=== PATIENT | female | born 1955 | race Caucasian/White ===

== ENCOUNTER 2016-10-24 13:20 | Observation (INO) | payer OTHER ==
[~2016-10-24] VITALS: Ht 157.5 cm; Wt 78.9 kg
[2016-10-24 13:25] VITALS: BP 107/56; PULSE 74; RESP 16; O2SAT 99
--- NOTE | 2016-10-24 13:47 | ED.REPORT ---
HPI-Chest Pain 40 and Over Date of Service Oct 24, 2016 ED Provider: Jaime Hutson DO Pt is a 61 year old female with a history of CHF, GERD, pancreatitis, and diastolic dysfunction who presents to the ED via EMS complaining of intermittent left-sided non-radiating and sharp chest pain onset 2 days ago. She c/o stress. She denies SOB and extremity swelling. Pt reports that each episode of chest pain lasts between 5-10 minutes, and that she is currently experiencing mild chest pain. Her chest pain is exacerbated with exertion. Pt denies a history of RI, smoking, and stroke. Nursing Notes Stated Complaint: CHEST PAIN Chief Complaint: Chest Pain Nursing Notes Reviewed: Yes Allergies: Coded Allergies: hydrocodone (Verified Allergy, Intermediate, itching, 10/24/16) pentazocine (Verified Allergy, Unknown, 10/24/16) prochlorperazine (Verified Allergy, Unknown, 10/24/16) General Time Seen by MD: 13:45 Chief Complaint Chest pain Hx Obtained From: Patient Arrived By: Walk-in Sudden in Onset?: No Onset Occurred: 2 days ago Symptom Duration: Intermittent Location: : Chest left Quality: Painful Radiation: : Does not radiate Migration/Movement: Reports: None Severity: Current: Moderate Severity: Maximum: Moderate Recent Healthcare: No recent doctor visit, No recent hospitalization Similar Sx Previous: No Risk Factors HEART Score HEART for MACE Score: 4-7 (mod risk 12%-16.6%) (4) Past Medical History Past Medical History Pancreatitis Diastolic dysfunction Denies RI Reports: Congestive heart failure, GERD, Denies: Stroke Past Surgical History Reports: Hysterectomy Smoking History Never Smoker Social History Denies Ambulatory Status Independent Review of Systems Respiratory: Denies: Shortness of breath Cardiovascular: Reports: Chest pain Musculoskeletal: Denies: Extremity pain, Extremity swelling Psychiatric: Reports: Stress Complete sys rev & neg: except as marked. Physical Exam Initial Vital Signs Vital Signs (First) Date Time Temp Pulse Resp B/P Pulse Ox O2 Delivery O2 Flow Rate FiO2 10/24/16 13:25 36.7 74 16 107/56 99 Room Air Initial VS: Reviewed Head / Eyes: Atraumatic, Normocephalic Neck: Supple, Full range of motion Extremities: Vascular intact, Neuro intact Skin: Warm, Dry, No cyanosis Neurologic: Alert, Oriented, Nonfocal Psychiatric: Mood/affect normal, Behavior normal General/Constitutional: Awake, Alert Respiratory / Chest: Atraumatic, Breath sounds NL, Breath sounds = bilat Cardiovascular: Heart rate NL, Regular rhythm, Heart sounds NL No lower extremity edema. Abdomen: Atraumatic, Soft, Non-tender Neck: Atraumatic, Full range of motion, No JVD Interpretation & Diagnostics Lab Results Interpretation Result Diagram: 10/24/16 1344 10/24/16 1344 Test 10/24/16 13:44 White Blood Count 6.3th/mm3 (3.8-10.1) Red Blood Count 4.49mil/mm3 (3.90-5.20) Hemoglobin 13.4g/dL (12.0-15.6) Hematocrit 39.3% (35.0-46.0) Mean Corpuscular Volume 87.5fL (81-100) Mean Corpuscular Hemoglobin 29.8pg (27.0-35.0) Mean Corpuscular Hemoglobin Concent 34.1% (32.0-37.0) Red Cell Distribution Width 12.6% (12.3-15.4) Platelet Count 203bil/L (150-400) Neutrophils (%) (Auto) 53.1% (40-74) Lymphocytes (%) (Auto) 36.1% (14-46) Monocytes (%) (Auto) 8.1% (4-12) Eosinophils (%) (Auto) 2.2% (0-5) Basophils (%) (Auto) 0.3% (0-3) Sodium Level 139mEq/L (134-144) Potassium Level 4.2mEq/L (3.5-5.2) Chloride Level 102mEq/L (97-108) Carbon Dioxide Level 22mmol/L (18-29) Blood Urea Nitrogen 17mg/dL (8-27) Creatinine 0.77mg/dL (0.57-1.00) Estimat Glomerular Filtration Rate 110mL/min (>59) Glucose Level 107mg/dL (60-99) Calcium Level 9.7mg/dL (8.5-10.1) Magnesium Level 1.9mg/dL (1.6-2.6) Total Bilirubin 0.3mg/dL (0.0-1.2) Aspartate Amino Transf (AST/SGOT) 17U/L (0-50) Alanine Aminotransferase (ALT/SGPT) 16U/L (0-32) Alkaline Phosphatase 71U/L (25-165) Total Protein 7.3g/dL (6.4-8.4) Albumin 4.4g/dL (3.4-5.0) ECG Interpretation ECG Interpretation: Sinus rhythm with a rate of 65 Time: 14:01 Interpreted by: ED physician X-Ray Chest Interpretation Chest Xray Interpretation: IMPRESSION: Normal. Source of pain is not seen. Dictated by: Varghese Lopez M.D. on 10/24/2016 at 14:06 View: Portable, 1 view Interpretation / Wet Read by: Interpret - Radiologist Re-Eval/Medical Decision Source of Hx: Old records Time of Eval: 14:32 Patient Status: Condition resolved Re-Evaluation/Progress Note: Pt rechecked. She is currently chest pain free. Informed pt of plan for admission. Pt understands and agrees with plan for admission. All questions addressed. Consultation : Referral / Consult Name: William Roa Consulted With: Hospitalist Call Returned at: 15:20 Imaging Services Director: Will see patient, Agrees with eval, Agrees with plan, Accepts admit Counseled Regarding: Diagnosis, Lab results, Need for admission Discharge & Departure Primary Impression: Unstable angina Disposition: ADMITTED TO HOSPITAL Discharge Condition All VS Reviewed: Yes Condition: Stable Referrals: [facility] Residency Clinic Scribe Attestation Portions of this note were transcribed by Susan Madrid. I, Dr. Hutson personally performed the history, physical exam and medical decision-making; I reviewed and confirmed the accuracy of the information in the transcribed note. Signed by: Amparo Melgoza, 10/24/16. copies to: [facility] Res[facility] Jaime Hutson DO Oct 24, 2016 13:47 Susan Hines Oct 24, 2016 14:07 Jaime Hutson DO Oct 24, 2016 13:47 Susan Hines Oct 24, 2016 14:07
[2016-10-24 13:51] LABS: BASOPHILS % (AUTO) 0.3 % (0-3); EOSINOPHILS % (AUTO) 2.2 % (0-5); MONOCYTES % (AUTO) 8.1 % (4-12); Mean Corpuscular Hemoglobin 29.8 pg (27.0-35.0); Mean Corpuscular Volume 87.5 fL (81-100); NEUTROPHILS % (AUTO) 53.1 % (40-74); Platelet Count 203 bil/L (150-400)
--- NOTE | 2016-10-24 14:07 | DRSVH ---
PROCEDURE: X-RAY CHEST ONE VIEW, PORTABLE ([id number]) INDICATIONS: chest pain TECHNIQUE: One view of the chest was acquired. COMPARISON: None. FINDINGS: Surgical changes and devices: None. Lungs and pleura: No pleural effusions or pneumothorax. Lungs are clear. Mediastinum: Mediastinal contours appear normal. Heart size is normal. Bones and chest wall: No suspicious bony lesions. Overlying soft tissues appear unremarkable. IMPRESSION: Normal. Source of pain is not seen. Dictated by: Varghese Lopez M.D. on 10/24/2016 at 14:06 Approved by: Varghese Lopez M.D. on 10/24/2016 at 14:06
[2016-10-24 14:21] LABS: TROPONIN T < 0.010 ug/L (0.0-0.011)
[2016-10-24 14:22] LABS: Magnesium 1.9 mg/dL (1.6-2.6)
[2016-10-24] MEDS ORDERED: Ondansetron 2 mg/mL 2 mL Inj IVPUSH PRN (15:20)
[2016-10-24] MEDS ORDERED: Alum-Mag Hydrox-Simeth 30 mL Suspension PO PRN ×2 (15:20→15:55)
[2016-10-24] MEDS ORDERED: Polyethylene Glycol (PEG) 17 Gm Powder PO PRN (15:55)
[2016-10-24] MEDS ORDERED: Pantoprazole 20 mg ER24 Tablet PO SCH (16:00)
--- NOTE | 2016-10-24 16:00 | NUR ---
Admit Patient admitted to [facility] via wheelchair accompanied by ED staff, A/O x3. Ambulating independently in the room, steady gait. Pain level of 3/10 with activity. Denies any SOB. IV saline lock, patent and intact, right forearm. Oriented to room and unit. Will continue to monitor.
[2016-10-24 16:30] VITALS: BP 119/71; PULSE 71; RESP 18; O2SAT 99
[2016-10-24] MEDS ORDERED: ALBU18HF INHALATION (16:52)
[2016-10-24] MEDS ORDERED: PREC VAGINAL (16:52)
[2016-10-24] MEDS ORDERED: CARV25TA2 PO (16:52)
[2016-10-24] MEDS ORDERED: LISI-571 PO (16:52)
[2016-10-24] MEDS ORDERED: OMEP20CA11 PO (16:52)
[2016-10-24] MEDS ORDERED: ASPI-973 PO (16:52)
[2016-10-24] MEDS ORDERED: ADV250INH IH (16:52)
[2016-10-24] MEDS ORDERED: ONDA8TAB10 PO (16:52)
[2016-10-24] MEDS ORDERED: KEN1C TOPICAL (16:53)
--- NOTE | 2016-10-24 16:56 | PCM.HPMED ---
Subjective Date of Service Oct 24, 2016 Primary Provider: Admitting Physician: William Roa Primary Care Physician: Moreno Attending Physician: William Roa Chief Complaint: Chest pain History of Present Illness: 61 year old female with self reported history of diastolic heart failure, GERD, chronic pancreatitis pancreatitis, and Crohn's disease presents with report of intermittent left-sided, non-radiating, and sharp chest pain with exertion that began about 2 days ago. She first started noticing some chest discomfort few days ago as she was going the stairs in her apartment. 2 days ago as she was walking to the [facility] she noticed significant sharp left sided chest pain (about 6 out of 10 in intensity) that was associated with some nausea but no other associated symptoms. The pain lasted about 5 minutes and was relieved with rest. She had recurrence of this pain throughout the day every time she would ambulate or exert herself. Yesterday she rested at home all day and did not have any chest discomfort. Today as she was coming back from [facility] she had another episode. She went to the local fire station and was subsequently brought to the ED via EMS. In the ED her chest pain resolved after one SL NTG. She denies any associated shortness of breath, diaphoresis or vomiting with these episodes of chest pain but did have some associated lightheadedness and nausea. She denies any similar episodes prior to recent days. She last had a stress test and cardiac cath about 5-6 years when she was supposedly diagnosed with diastolic heart failure and she notes that at that time no significant coronary artery disease was identified. She reports chronic bilateral lower extremity edema that has not been any worse than usual. Review of Systems: Constitutional: Negative, except as otherwise mentioned in the history above. Ophthalmologic: Negative, except as otherwise mentioned in the history above. Cardiovascular: Negative, except as otherwise mentioned in the history above. Respiratory: Negative, except as otherwise mentioned in the history above. Gastrointestinal: Negative, except as otherwise mentioned in the history above. Genitourinary: Negative, except as otherwise mentioned in the history above. Musculoskeletal: Negative, except as otherwise mentioned in the history above. Neurological: Negative, except as otherwise mentioned in the history above. Psychiatric: Negative, except as otherwise mentioned in the history above. Hematologic/Lymphatic: Negative, except as otherwise mentioned in the history above. Allergic/Immunologic: Negative, except as otherwise mentioned in the history above. Allergies Coded Allergies: hydrocodone (Verified Allergy, Intermediate, itching, 10/24/16) pentazocine (Verified Allergy, Unknown, 10/24/16) prochlorperazine (Verified Allergy, Unknown, 10/24/16) Home Medications Albuterol Sulfate 200 Puff/18 Gm Inhaler 2 Puffs INHALATION QID PRN Carvedilol 25 Mg Tablet 25 Mg PO BID Lisinopril 5 Mg Tablet 2.5 Mg PO DAILY Aspirin 81 Mg Tablet 81 Mg PO DAILY Fluticasone/Salmeterol (Advair 250-50 Diskus) 1 Puff IH BID Omeprazole 20 Mg Capsule.Dr 20 Mg PO BID Ondansetron ODT 8 Mg Tab.Rapdis 8 Mg PO TID PRN Estrogens Conjugated 1 Gm Vagcream (Premarin) 1 Gm VAGINAL WEEKLY Triamcinolone Acet 1 Applic/0.25 Gm Cr 1 Applic TOPICAL DAILY PRN PMH Chronic Pancreatitis Diastolic dysfunction GERD, Crohn's disease Asthma Surgical History Hysterectomy Family History Father with lymphoma, mother with uterine and skin cancer. An aunt may have had a heart disease Social History Hx Alcohol Use: No Hx Substance Use: No Hx Tobacco Use: No Smoking Status: Never Smoker Living Arrangement: Alone Exam Vital Signs Vital Sign - Last Date Time Temp Pulse Resp B/P Pulse Ox O2 Delivery O2 Flow Rate FiO2 10/24/16 13:25 36.7 74 16 107/56 99 Room Air General: Alert, Oriented X3, Cooperative, No Acute Distress Head: Normal Eyes: PERRLA, EOMI, Scleral Anicteric Nose: Mucous Membr Moist/[place]ast[place] Mouth: Mucous Membr Moist/[place] Neck: Supple Chest & Lungs: Chest Wall Normal, Clear to auscultation & percussion Cardiovascular: Regular Rate/Rhythm Pulses: NL carotid, radial, femoral, DP, PT Abdomen: Non-tender, Non-distended, Normoactive bowel tones, Soft Extremities: No cyanosis/clubbing/edma bilat Neurological: Grossly Neurologically Intact, Cranial Nerves 2-12 Intact, Normal Speech Additional Information: Psych: Calm, appropriate Lab and Diagnostics Result Diagram: 10/24/16 1344 10/24/16 1344 X-Rays, CTs and MRIs Date of Service: 10/24/16 1333 PROCEDURE: X-RAY CHEST ONE VIEW, PORTABLE ([id number]) IMPRESSION: Normal. Source of pain is not seen. Dictated by: Varghese Lopez M.D. on 10/24/2016 at 14:06 Approved by: Varghese Lopze M.D. on 10/24/2016 at 14:06 12-lead ECG SR at rate of about [address] elevation/depression. Assessment & Plan 61 year old female with self reported history of diastolic heart failure, GERD, chronic pancreatitis pancreatitis, and Crohn's disease presents with report of intermittent left-sided, non-radiating, and sharp chest pain with exertion # Acute chest pain, present on admission. - Rule out myocardial infarction by cycling Trop - Stress test in AM - Echo - Continue with home BP meds and ASA - Start Lipitor - Fasting lipid panel # Chronic Pancreatitis. Stable - Followup # Diastolic dysfunction - Continue with home dose Lisinopril - Followup echo # GERD - Continue with home PPI # Crohn's disease. Stable - Not on any home meds # Chronic asthma. Stable - Continue with home dose inhalers Expected length of hospital stay is less than 2 midnights and likely 1-2 days GI Prophylaxis: Proton Pump Inhibitor VTE Prophylaxis: Sub-Q Heparin (Unfractionated) Resuscitation Status: CPR: Attempt Resuscitation (discussed and verified with patient) Time spent 60 min William Roa Oct 24, 2016 16:56
[2016-10-24 16:58] VITALS: PULSE 65
--- NOTE | 2016-10-24 17:07 | DRSVH ---
[facility] [address] [place] [address] Echocardiogram Report Name: DUNCAN MACHADO RStudy Date : 10/24/2016 Height: 62 in Hospital Exam Location: [facility] Weight: 170 lb Gender: Female BSA: 1.8 m2 : 1955 Age: 61 yrs Reason For Study: CHEST PAIN Ordering Physician: HOSPITALIST [facility] Performed By: Pauline Welch Referring Physician: [facility] Interpretation Summary The left ventricle is normal in size. The left ventricular ejection fraction is normal. The ejection fraction is estimated to be 55-60%. There is a small area of hypokinesis along the apical anterior and apical lateral wall. The right ventricle is normal in size, thickness and function. The right ventricular systolic pressure is estimated at least 23 mmHg assuming a right atrial pressure of 3 mm Hg. The left atrial size is normal. Right atrial size is normal. There is mild mitral regurgitation. There is no other significant valvular heart disease. The aortic root is normal size. Procedure: A two-dimensional transthoracic echocardiogram with color flow and Doppler was performed. The study quality was technically good. There is no prior echocardiogram noted for this patient. The patient was in normal sinus rhythm during the exam. Left Ventricle: The left ventricle is normal in size. There is borderline concentric left ventricular hypertrophy. The left ventricular ejection fraction is normal. The ejection fraction is estimated to be 55-60%. There is small area of hypokinesis along the apical anterior and apical lateral wall. Assessment of diastolic parameters indicates normal left ventricular diastolic function and normal filling pressures. Right Ventricle: The right ventricle is normal in size, thickness and function. Atria: The left atrial size is normal. Right atrial size is normal. There is no Doppler evidence for an interatrial shunt. Mitral Valve: The mitral valve leaflets appear normal. There is no evidence of stenosis, fluttering, or prolapse. There is mild mitral regurgitation. Aortic Valve: The aortic valve is normal in structure and function. No aortic regurgitation is present. Tricuspid Valve: The tricuspid valve is normal. There is mild tricuspid regurgitation. The right ventricular systolic pressure is estimated at least 23 mmHg assuming a right atrial pressure of 3 mm Hg. Pulmonic Valve: The pulmonic valve is not well visualized. There is mild pulmonic regurgitation. There is no other significant valvular heart disease. Great Vessels: The aortic root is normal size. The ascending aorta is normal in size. The aortic arch is normal in size. The pulmonary is not well visualized. The IVC is of normal diameter and collapses greater than 50% with a sniff. This suggests a low right atrial pressure of 3 mm Hg. Pericardium/ Pleura There is no pericardial effusion. There is no pleural effusion. MMode/2D Measurements & Calculations LVIDd: 4.7 cm RA long axis LVOT diam: 2.0 cm LVIDs: 2.9 cm LA A2 area: 14.9 cm AoV Opening FS: 37.7 % LA A4 area: 19.4 cm RA area EPSS: 0.42 cm LA length (vol) Ao root diam IVSd: 1.1 cm : 18.4 cm LVPWd: 0.77 cm LA vol: 47.8 ml RA vol asc Aorta Diam LA vol index : 52.2 ml RA Ao Arch Diam (Prox : 29.3 mm2 Trans): 2.3 cm IVC diam: 1.7 cm LV chambers. diameter/BSA LV sys. diameter/BSA RVD1 (basal) RVD2 (mid): 2.2 cm (cm/m^2): 2.6 (cm/m^2): 1.6 Doppler Measurements & Calculations Ao V2 max MV E max bennett MV E/A: 1.2 TR max bennett : 107.7 cm/sec : 69.7 cm/sec Med Peak E' Bennett : 222.3 cm/sec Ao max PG MV A max bennett TR max PG : 4.6 mmHg : 56.2 cm/sec E/E' med: 9.2 : 19.8 mmHg Ao mean PG MV P1/2t: 72.0 msec Lat Peak E' Bennett PA V2 max : 71.1 cm/sec LVOT Max Bennett E/E' lat: 6.5 PA mean PG : 88.3 cm/sec E/e' average: 7.8 : 1.4 mmHg NOE(I,D): 2.6 cm sev ratio MV dec time MV P1/2t max bennett Ao V2 mean LV V1 max PG : 0.24 sec : 72.9 cm/sec MVA(P1/2t): 3.1 cm2 Ao V2 VTI: 23.5 cm LV V1 VTI NOE(V,D): 2.6 cm2 : 19.1 cm PA V2 mean NOE indexed to BSA : 57.7 cm/sec (cm^2/m^2): 1.5 PA pr(Accel) : 21.4 mmHg Reading Physician:FAITH
[2016-10-24] MEDS: Heparin 5,000 Unit/mL Inj SUBQ SCH (17:13)
[2016-10-24 20:35] VITALS: BP 110/69; PULSE 67; RESP 18; O2SAT 97
[2016-10-24] MEDS: Pantoprazole 40 mg ER24 Tablet PO SCH (20:58)
[2016-10-24] MEDS: Fluticasone-Salmererol 250-50 Inhaler INHALATION SCH (20:58)
[2016-10-24] MEDS ORDERED: Albuterol 2.5 mg/3 mL Inhalation Solution NEB PRN (21:30)
[2016-10-25] VITALS (9 sets, daily range): BP systolic 101–125; BP diastolic 54–71; PULSE 42–80; RESP 16–18; O2SAT 92–98
[2016-10-25] MEDS: Heparin 5,000 Unit/mL Inj SUBQ SCH ×3 (00:44→18:33)
--- NOTE | 2016-10-25 02:49 | NUR ---
Activity Pt has denied chest pain this shift and has been on [email or web address], [employer] 60s. Pt up to BR independently and steady on feet. Wearing the SCDs. Pt was made NPO at midnight for stress test this morning Addendum: 10/25/16 at 0552 by CHRIS NASSAR RN BACK PAIN Pt reporting back pain at 7/10 this morning, pt is NPO for stress test so Morphine 1 mg given.
[2016-10-25 05:52] LABS: Mean Corpuscular Hemoglobin 29.7 pg (27.0-35.0); Mean Corpuscular Volume 87.7 fL (81-100)
[2016-10-25 06:24] LABS: INR 0.98 ratio
[2016-10-25 06:33] LABS: Magnesium 1.9 mg/dL (1.6-2.6); TROPONIN T < 0.010 ug/L (0.0-0.011)
[2016-10-25] MEDS: Fluticasone-Salmererol 250-50 Inhaler INHALATION SCH ×2 (08:30→20:35)
[2016-10-25] MEDS: Pantoprazole 40 mg ER24 Tablet PO SCH ×2 (13:11→20:35)
--- NOTE | 2016-10-25 13:46 | NUR ---
Stress test Pt went for stress test at approximately 1000 hrs. Testing was delayed because pt was given a cola (caffeine) drink last night that she finished at approximately 2200 hrs. Pt returned to her room from nuclear medicine at 1300 hrs. Pt reported she had no problems with the stress test and she has no c/o pain now. Pt asking to be discharged. Cook page sent to hospitalist with pt's request. Awaiting response.
--- NOTE | 2016-10-25 15:56 | PCM.PNMED ---
Subjective Date of Service Oct 25, 2016 Subjective Reports some more brief chest pain when going to the bathroom and back. Also reports some anxiety attack this morning but says currently feeling fine. Otherwise denies any new issues/complaints Exam Vital Signs Vital Sign - Last Date Time Temp Pulse Resp B/P Pulse Ox O2 Delivery O2 Flow Rate FiO2 10/25/16 13:08 36.7 69 18 125/67 98 Room Air Intake and Output 10/24/16 10/24/16 10/25/16 Cumulative From/Thru 15:00 23:00 07:00 10/24/16 13:25 - 10/25/16 06:34 Intake Total 636 ml 872 ml 1508 ml Output Total 500 ml 1800 ml 2300 ml Balance 136 ml -928 ml -792 ml Intake Oral 636 ml 872 ml 1508 ml Output Urine Total 500 ml 1800 ml 2300 ml # Voids 4 4 # Bowel Movements 0 0 0 Exam General: Alert, Cooperative, No Acute Distress Head: Normal Eyes: Scleral Anicteric Nose: Mucous Membr Moist/[place] Mouth: Mucous Membr Moist/[place] Neck: Supple Chest & Lungs: Chest Wall Normal, Clear to auscultation bilat Cardiovascular: Regular Rate/Rhythm Abdomen: Non-tender, Non-distended, Normoactive bowel tones, Soft Extremities: No cyanosis/clubbing/edema bilat Neurological: Grossly Neurologically Intact, Cranial Nerves 2-12 Intact, Normal Speech Psych: Calm, appropriate IVs and Medications Medications Reviewed: Medications were reviewed in detail Lab and Diagnostics Result Diagram: 10/25/16 0510/25/16 0520 X-Rays, CTs and MRIs Date of Service: 10/24/16 1333 PROCEDURE: X-RAY CHEST ONE VIEW, PORTABLE ([id number]) IMPRESSION: Normal. Source of pain is not seen. Dictated by: Varghese Lopez M.D. on 10/24/2016 at 14:06 Approved by: Varghese Lopez M.D. on 10/24/2016 at 14:06 12-lead ECG SR at rate of about [address] elevation/depression. Assessment & Plan 61 year old female with self reported history of diastolic heart failure, GERD, chronic pancreatitis pancreatitis, and Crohn's disease presents with report of intermittent left-sided, non-radiating, and sharp chest pain with exertion # Acute chest pain, present on admission. - Ruled out acute myocardial infarction with negative Trop x 3 - Exercise stress test reported as negative on 10/25/16 - Echocardiogram showing EF 55-60% and a small area of hypokinesis along the apical anterior and apical lateral wall. - Discussed patient's history and above findings with cardiology consult and initial impression is that patient will likely benefit from a cardiac cath given her presenting symptoms and echo findings - Cardiology consulted this afternoon and will followup with further recommendations. - Continue with home BP meds and ASA - Continue with Lipitor started during this hospital # Hyperlipidemia. Present on admission. - Started on Lipitor as noted above # Chronic Pancreatitis. Stable - Followup # Self reported history of diastolic dysfunction. Stable. - Continue with home dose Lisinopril - Echo as noted above # GERD - Continue with home PPI # Crohn's disease. Stable - Not on any home meds # Chronic asthma. Stable - Continue with home dose inhalers # Acute anxiety. Reports currently under control - Due to some social issues including her son possibly going to nursing home. - Continue with supportive care - Ativan prn while in hospital Dispo: 1-2 days pending further cardiac workup noted above GI Prophylaxis: Proton Pump Inhibitor VTE Prophylaxis: Sub-Q Heparin (Unfractionated) VTE Mechanical Devices: Intermittant Pneumatic CD Resuscitation Status: CPR: Attempt Resuscitation (discussed and verified with patient) William Roa Oct 25, 2016 15:56
[2016-10-25] MEDS ORDERED: LORazepam 1 mg Tablet PO PRN (16:00)
--- NOTE | 2016-10-25 16:10 | NUR ---
Social Work: Initial Assessment/Readiness for D/C/Multidisciplinary Rounds D: EMR reviewed. Please see Initial Assessment linked to this note for more information. Pt is a 61 year old female admitted Day for unstable angina per H&P. Pt's insurance is [employer]. Pt has no PCP since she recently moved but she is looking for a local PCP. Pt discussed in multidisciplinary rounds, pt to receive stress test today. Pt is likely to d/c home, no concerns about pt's capacity for self-care at this time. SW met with pt at bedside to conduct initial assessment. Pt was alert and oriented x3. SW explained role and wrote phone number on white board. SW provided [facility] Discharge Planning Checklist and encouraged pt to contact SW for any discharge planning questions. Pt lives at home alone in an apartment in [place]. Pt lives on the third floor and her building's elevator is broken. Pt has been successful in navigating the stairs so far. Pt is independent with all ADLs at baseline. Pt uses no DME at baseline, but has a cane and walker available for use at discharge. Pt drives. Pt has no HH or SNF history. Pt has no LTC or VA benefits. Pt has no DPOA on file, declined information. Pt is eligible for Medicaid transportation, verified benefit today. Pt is likely to d/c home via [facility] transport. SW will continue to follow. A: Pt who is independent at baseline and has the capacity for self-care. P: Pt anticipated to discharge home via Medicaid transportation. No SW needs identified, no MD orders received at this time. SW will continue to follow for needs until time of discharge. JANAY Bello Addendum: 10/25/16 at 1610 by KAROLINE WHITE Amended: Links added.
--- NOTE | 2016-10-25 18:26 | DRSVH ---
PROCEDURE: ONE DAY TREADMILL STRESS TEST. Rest and exercise myocardial perfusion SPECT with gated i maging and ejection fraction RADIOPHARMACEUTICAL: 7.1 mCi of Tc-99m tetrofosmin IV at rest and 26.7 mCi of Tc-99m tetrofosmin IV at peak exercise. [id number] was performed. INDICATIONS: CHEST PAIN. TECHNIQUE: Radiopharmaceutical was injected at peak stress test and also at rest. SPECT images were obtained. SPECT myocardial perfusion images were displayed in short axis, horizontal long axis, and vertical long axis views. Gated images were reviewed using [employer] software. COMPARISON: None. CARDIAC STRESS: A standard Jagdeep treadmill exercise tolerance test was performed by the patient unde r supervision of the attending staff. The patient exercised for 8 minutes and 14 seconds; functional aerobic impairment (DIMAS) was -18%. Hemodynamic Data: Normal blood pressure and heart rate response to exercise stress. The patient ach ieved 93% of maximum predicted heart rate at peak exercise. Symptoms: The patient denied chest pain during exercise. EKG: No diagnostic EKG changes of ischemia. No significant arrhythmias. The predominant rhythm was sinus. FINDINGS: Raw Data: There appeared to be adequate myocardial uptake. There is increased subdiaphragmatic acti vity. Breast shadow was seen as well. Left Ventricular Function: Stress LV ejection fraction was 81% and resting LV ejection fraction was 72%. LV function appears to be hyperdynamic. No obvious wall motion abnormalities. Resting LV end diastolic volume was 63 mL. On my visual inspection, there is no obvious transient ischemic dilatati on. Myocardial Perfusion: The resting supine images revealed small-size, mildly-decreased perfusion of t he distal anterior wall anteroapex, however, stress supine images revealed normal myocardial perfusio n. I do not see any obvious reversible ischemia or infarction pattern. IMPRESSION: I will call this study likely a normal myocardial perfusion study as the stress supine i mages reveal normal myocardial perfusion. The patient has good exercise tolerance. He walked on the Jagdeep protocol for 8 minutes and 14 seconds with functional aerobic impairment of -18%. He achieved 10.1 METs of workload. Normal blood pressure response. Hyperdynamic left ventricular function. No obvious ischemic electrocardiogram changes. No significant arrhythmias. No chest pain. Overall, t his is a low-risk myocardial perfusion scan. Dictated by: Kathryn Brown M.D. on 10/25/2016 at 15:24 Transcribed by: HARSHA on 10/25/2016 at 21:26 Approved by: Kathryn Brown M.D. on 10/26/2016 at 17:09
[2016-10-26] VITALS (12 sets, daily range): BP systolic 98–118; BP diastolic 59–72; PULSE 56–88; RESP 14–18; O2SAT 93–98
[2016-10-26] MEDS: Heparin 5,000 Unit/mL Inj SUBQ SCH ×3 (01:35→17:35)
--- NOTE | 2016-10-26 02:02 | NUR ---
Pain Patient denies any chest pain/discomfort so far this shift. States she only has her chronic back pain when asked about any pain/discomfort. Declined offer for pain medication, stating its tolerable. Aware to ask for pain medications if/when its no longer tolerable. States understanding.
[2016-10-26] MEDS: Fluticasone-Salmererol 250-50 Inhaler INHALATION SCH ×2 (08:18→20:13)
[2016-10-26] MEDS: Pantoprazole 40 mg ER24 Tablet PO SCH ×2 (08:19→20:14)
--- NOTE | 2016-10-26 11:19 | NUR ---
POST HOSPITAL FOLLOW UP: Scheduled appointment for [facility] up [facility] check in at 10Am for 1010AM appointment with 11/02/[address]
--- NOTE | 2016-10-26 12:42 | CONS ---
[address] [address] CONSULTATION REPORT PATIENT: DUNCAN MACHADO : 1955 MR#: [id number] ADMIT: 10/24/2016 JOB ID: [id number] DATE OF SERVICE: 10/26/2016 CARDIOLOGY CONSULTATION NOTE: Initial inpatient evaluation: CONSULTING PHYSICIAN: Cardiology-Mayank Marin MD PROBLEMS: 1. Acute coronary syndrome (ACS). a. Chest pain: Admitted with recent onset of chest pain consistent with ischemia, but also some atypical features. The clinical working diagnosis of unstable angina (UAP). Troponin negative and ECG not outside normal limits. b. CANDICE-2 (aspirin use, several episodes of chest discomfort). c. Treadmill stress test negative. Myocardial perfusion scan shows no ischemia. 2. CAD risk factors: a. No history of treated hypertension. b. History of "severe" hyperlipidemia, not treated for some years. c. Lifetime nonsmoker. d. No history of diabetes. e. No history of family premature coronary disease (family history not well known). OTHER PROBLEMS: 1. History of "diastolic heart failure:" On lisinopril and carvedilol for eight years for shortness of breath and edema after presenting with chest pain that led to heart catheterization and said to have no revascularizable disease then (no further details available). 2. History of recurrent pancreatitis: Episodes twice per year, mostly lipase not elevated. 3. Crohn disease: Inactive in recent years and not on treatment. 4. GERD, inactive. On omeprazole. 5. LBP (chronic low back pain) from remote traumatic injuries. CHIEF COMPLAINT: Chest pain. HISTORY OF PRESENT ILLNESS: I am glad to meet this 61-year-old woman who was admitted two days ago through the emergency department after she walked into a fire department house complaining of recent onset of chest discomfort. Coronary disease and catheterization are being considered. The patient tells me she has not had chest pain before. She is generally active including walking three flights up to her apartment carrying groceries and garbage; however, she does have chronic exertional dyspnea (functional class two) and stops several times walking up those three flights. She describes that two days ago while walking she had the onset of "sharp" left upper chest discomfort. It recurred repeatedly with exertion, relieved by rest. The quality is atypical, being sharp, but on questioning she admits to at least some component of heaviness. There was no radiation, but there was mild diaphoresis without dyspnea or lightheadedness or nausea. She rested the next day but then had recurrent symptoms on the day of admission. The symptoms have been moderate in severity, six on a scale of 10, and there been no severe, prolonged, resting, or nocturnal episodes. It feels entirely different from her reflux and pancreatitis symptoms. She has had at least one or two mild episodes while in the hospital while ambulating to the bathroom. In the hospital troponins were negative. A single ECG was not outside normal limits in the emergency department. A stress test was done and interpreted as negative for ischemia. She has been treated with aspirin and statin, and initially heparin. CARDIAC HISTORY: Reviewing her cardiac history I noted she had rheumatic fever in childhood (4 years old); "They put me in ice water baths." She has not had any prior ischemic symptoms. Regarding heart failure she has mild to moderate symptoms, does not take diuretics, and the diagnosis was made at the time of catheterization for chest pain at [facility] about eight years ago. She is followed by a spanish language lecturer in [place] and a primary physician there as well. She was seen within the last few months and was stable. Regarding arrhythmia, there is no history of arrhythmia or current symptoms of arrhythmia such as tachy palpitation, presyncope, or syncope. Regarding other possible underlying vascular disease, she has no history of CVA or current symptoms of TIA. Regarding possible claudication, she does note severe bilateral calf cramping walking one block (previously 1/2 block). This started only several months ago. It is atypical for claudication in that it occurs at night as well. She describes a workup by her primary physician that included an MRI to look for spinal stenosis. She also describes a test, probably vascular ultrasound, that she understands was unrevealing as well. Regarding possible dual antiplatelet therapy, she has no current bleeding symptoms, no anticipated surgery. She reports reliable to take mandatory medicines as needed. ALLERGIES: THE RECORD INDICATES ALLERGY TO HYDROCODONE, , AND PROCHLORPERAZINE. I ELICIT PRIOR ALLERGY TO MEDICAL CONTRAST; 34 YEARS AGO AFTER THE OF A CHILD THERE WAS A QUESTION OF PHLEBITIS. SHE HAD SHE DESCRIBES A LOWER EXTREMITY ANGIOGRAM WHERE SHE HAD SEVERE SYMPTOMS WITH THROAT SWELLING, TROUBLE BREATHING, AND ENDED UP IN ICU. SINCE THEN SHE HAS HAD REPEATED CONTRAST STUDIES WHICH CAUSE ITCHING BUT NO MORE SEVERE REACTION, AND SHE DESCRIBES SOME PRETREATMENT. MEDICATIONS: Home medicines include: 1. Albuterol 2 puffs q.i.d. p.r.n. She uses it for "asthma." 2. Carvedilol 25 mg p.o. b.i.d. 3. Lisinopril 2.5 mg p.o. daily. 4. ASA 81 mg daily. 5. Advair 250/50 Diskus one puff INH b.i.d. 6. Omeprazole 20 mg p.o. b.i.d. 7. Ondansetron 8 mg p.o. t.i.d. p.r.n. 8. Estrogen vaginal cream. 9. Triamcinolone cream. PAST MEDICAL HISTORY: As above and also: Asthma: She reports asthma occasionally which is not asthmatic bronchitis but induced by cold air. REVIEW OF SYSTEMS: I questioned her about a 13-point review of systems, which is unremarkable, noncontributory, or negative except as noted including: No history of thyroid disorder. No history of GI disorder otherwise including hepatitis or jaundice. Arthritis: Recently she reports osteoarthritis. Recently has had some discomfort across her hands. PERSONAL/SOCIAL HISTORY: She recently moved here from [facility] and has not reestablished primary care or cardiology care. Alcohol: She reports not using alcohol. Family: She lives by herself with her service dog. FAMILY HISTORY: She does not know her family history well. PHYSICAL EXAMINATION: General appearance: Pleasant middle-aged woman comfortable, in no distress. She has her service dog with her. Vital Signs: Blood pressure 105/59 with heart rate 58 regular. Respiratory rate 18, nonlabored. SpO2 98% on room air. Afebrile. Weight 80 kg. Neurologic and mental status: No overt focal neurologic defect noted. She is alert, oriented, appropriate, and conversant. HEENT : PERRL. Conjunctivae pink. Sclerae not icteric. Mouth and mucous membranes intact with Mallampati four. Neck: Carotid upstroke intact bilaterally without bruit. Jugular venous pressure unremarkable. No palpable thyromegaly. No palpable cervical lymphadenopathy. Lungs: Clear to auscultation bilaterally, including forced expiratory time. Cardiac: No chest wall tenderness. Heart examination notable for regular rhythm, loud S4, and there is no loud murmur heard. Abdomen: Somewhat obese, but otherwise unremarkable, without tenderness, mass, hepatosplenomegaly, or bruit of abdominal aortic aneurysm. Extremities: Intact, without edema. Pulses are intact femoral without bruit and at the bilateral dorsalis pedis. DIAGNOSTIC STUDIES: Electrocardiogram: The ECG from the emergency department is not outside normal limits. Chest x-ray: The chest x-ray film is unremarkable, without cardiomegaly or findings of heart failure, including there was no pulmonary venous hypertension. LABORATORY: CBC includes WBC 6200 with hemoglobin 12.8, hematocrit 37.8, normal indices, and platelet count 202,000. Chemistries include potassium 3.9, BUN 13, creatinine 0.84, estimated GFR 99, glucose 106, magnesium 1.9. Cardiac markers include troponin-T not elevated (less than 0.010 three times). Lipid profile markedly abnormal with triglycerides 232, cholesterol total 257, LDL 176, and HDL 34. Echocardiogram: I reviewed the report of the echocardiogram which shows intact LV function but report of a small apical wall motion defect and no significant valvular disease. Stress test: The stress test reports no symptoms. The patient noted mild dyspnea and mild chest tightness. She exercised well, to maximal heart rate. The summation ECGs show [address] sagging inferiorly. The perfusion scans are reported to show out artifact at rest, normal perfusion at stress, and no visually over TID. ASSESSMENT: I discussed the findings, impressions, and management considerations with her and with the hospitalist team (Dr. Bam Sylvester) including: Chest pain and working diagnosis of acute coronary syndrome (ACS) with unstable angina pectoris (UAP): She has chest pain that is consistent with ischemia, but some of the features are atypical including the sharp quality, but it is exertional, relieved by rest and by NTG SL in the emergency department. The other clinical working diagnosis is unstable angina; but other diagnoses can be considered in the absence of other objective evidence documenting ischemia. In this regard note ECG normal. Echocardiogram reports wall motion defect (but, interestingly, she volunteers that she had a "bottom part of the heart" not working well at the time of her evaluation eight years ago). The stress test does not reveal ischemia, but there was nonspecific ST depression noted. I discussed all this with her, including the importance of pinning down a diagnosis of coronary disease. We discussed that with a low risk stress test, medical therapy would be appropriate. We also discussed that catheterization would be appropriate for definitive diagnosis and to guide treatment decisions, including medical therapy, percutaneous coronary intervention, or bypass surgery if indicated. We also discussed that coronary angiogram would help management to avoid escalating antianginal medicines without a firm diagnosis and to help given the apparent likelihood of further symptoms in the near future. She felt strongly in favor of catheterization and I told her I was very comfortable with that, to proceed along those lines. We discussed the catheterization procedure including possible risks and complications. We discussed bleeding, infection, and blood clot; as well as injury to nerve, artery, vein, or kidney; and also arrhythmia and drug reaction; or others. We discussed treatment as needed including surgery, pacemaker, and transfusion. We discussed more serious complications that are possible including stroke, heart attack, cardiac arrest, , and emergency surgery including transfer for coronary bypass surgery. After questions and discussion, she signed informed consent to proceed. RECOMMENDATIONS: 1. Cardiac catheterization, urgent. 2. Pretreat for history of anaphylactic dye allergy. 3. Your evaluation for other causes of chest discomfort including PE (consider begin with D-dimer). 4. OMT (optimal guideline directed medical therapy) for CAD risk factors (especially hyperlipidemia) with high intensity statin regimen and for underlying CAD if found. 5. Please obtain outside records of her prior cardiac evaluation and followup; please reconsult when they are available.
[2016-10-26] MEDS ORDERED: MethylprednisoLONE Sodium Succinate 62.5 mg/mL 2 mL Inj IVPUSH ONE (12:50)
[2016-10-26] MEDS: Famotidine Inj 20 MG in IV Premix 1 EACH IV SCH ×2 (13:19→20:14)
[2016-10-26] MEDS: Ondansetron 2 mg/mL 2 mL Inj IVPUSH PRN ×2 (13:29→22:06)
--- NOTE | 2016-10-26 13:43 | PCM.PNMED ---
Subjective Date of Service Oct 26, 2016 Subjective Continues to have chest pain on exertion. D-dimer negative. Exam Vital Signs Vital Sign - Last Date Time Temp Pulse Resp B/P Pulse Ox O2 Delivery O2 Flow Rate FiO2 10/26/16 12:48 36.7 60 16 105/69 95 Room Air Intake and Output 10/25/16 10/25/16 10/26/16 Cumulative From/Thru 14:59 22:59 06:59 10/24/16 13:25 - 10/26/16 05:47 Intake Total 800 ml 400 ml 2708 ml Output Total 1100 ml 650 ml 4050 ml Balance -300 ml -250 ml -1342 ml Intake Oral 800 ml 400 ml 2708 ml Output Urine Total 1100 ml 650 ml 4050 ml # Voids 4 # Bowel Movements 0 0 0 Exam General: Alert, Cooperative, No Acute Distress Head: Normal Eyes: Scleral Anicteric Nose: Mucous Membr Moist/[place] Mouth: Mucous Membr Moist/[place] Neck: Supple Chest & Lungs: Chest Wall Normal, Clear to auscultation bilat Cardiovascular: Regular Rate/Rhythm Abdomen: Non-tender, Non-distended, Normoactive bowel tones, Soft Extremities: No cyanosis/clubbing/edema bilat Neurological: Grossly Neurologically Intact, Cranial Nerves 2-12 Intact, Normal Speech Psych: Calm, appropriate IVs and Medications Medications Reviewed: Medications were reviewed in detail Lab and Diagnostics Result Diagram: 10/25/1651910/25/16 0520 X-Rays, CTs and MRIs Date of Service: 10/24/16 1333 PROCEDURE: X-RAY CHEST ONE VIEW, PORTABLE ([id number]) IMPRESSION: Normal. Source of pain is not seen. Dictated by: Varghese Lopez M.D. on 10/24/2016 at 14:06 Approved by: Varghese Lopez M.D. on 10/24/2016 at 14:06 12-lead ECG SR at rate of about [address] elevation/depression. Assessment & Plan 61 year old female with self reported history of diastolic heart failure, GERD, chronic pancreatitis pancreatitis, and Crohn's disease presents with report of intermittent left-sided, non-radiating, and sharp chest pain with exertion # Acute chest pain of unclear etiology, present on admission. - Ruled out acute myocardial infarction with negative Trop x 3.d-dimer negative - Exercise stress test reported as negative on 10/25/16 - Echocardiogram showing EF 55-60% and a small area of hypokinesis along the apical anterior and apical lateral wall. - Patient seen with Dr. Marin,he discussed options in detail including empiric medical management versus diagnostic cardiac cath . Patient opted for cardiac catheterization. -Patient has history of anaphylaxis to x-ray dye many years ago.Dr Marin considering pretreatment with Benadryl and Solu-Medrol - Continue with home meds ,coreg ,lisinopril and ASA - Continue with Lipitor started during this hospital # Hyperlipidemia. Present on admission. - Started on Lipitor as noted above # Chronic Pancreatitis. Stable - Followup # Self reported history of diastolic dysfunction. Stable. - Continue with home dose Lisinopril - Echo as noted above # GERD - Continue with home PPI # Crohn's disease. Stable - Not on any home meds # Chronic asthma. Stable - Continue with home dose inhalers # Acute anxiety. Reports currently under control - Due to some social issues including her son possibly going to prison. - Continue with supportive care - Ativan prn while in hospital Dispo: 1-2 days pending further cardiac workup noted above Observation status GI Prophylaxis: Proton Pump Inhibitor VTE Prophylaxis: Sub-Q Heparin (Unfractionated) VTE Mechanical Devices: Intermittant Pneumatic CD Resuscitation Status: CPR: Attempt Resuscitation (discussed and verified with patient) Bam Sylvester MD Oct 26, 2016 13:43
--- NOTE | 2016-10-26 16:13 | NUR ---
spiritual care: pt request lengthy conversational visit. pt expressive about stresses in personal life and also health concerns. described tension between caring for herself and for others. Shared her anxiety about procedure, welcomed prayer and plans to reach out to pugh of her restoration for additional support. Provided written resource and supportive listening.
--- NOTE | 2016-10-26 16:20 | NUR ---
Shift: VSS, no c/o chest pain, tele SR 60s, RA O2 sats 100%. NPO for possible heart cath, voiding independently. Up ad malcolm in room, no gait instability noted. C/o headache, PRN Tylenol effective. Care ongoing.
[2016-10-26] MEDS: predniSONE 20 mg Tablet PO SCH (19:42)
[2016-10-27] VITALS (14 sets, daily range): BP systolic 101–116; BP diastolic 49–96; PULSE 65–86; RESP 10–22; O2SAT 94–95
[2016-10-27] MEDS: Heparin 5,000 Unit/mL Inj SUBQ SCH ×2 (00:10→08:30)
[2016-10-27] MEDS: 0.9% Sodium Chloride 1,000 ML IV SCH ×2 (00:10→11:21)
[2016-10-27] MEDS: predniSONE 20 mg Tablet PO SCH ×2 (01:43→07:30)
--- NOTE | 2016-10-27 03:41 | NUR ---
Shift: VSS, tele SR 80's, no c/o chest pain this shift. Noted short duration dizziness and diaphoresis after getting up to the bathroom, vital signs again taken and stable, c/o nausea x1 this shift relieved with IV antiemetic. 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 Currently in bed with eyes closed, chest rising and falling. Call light within reach, will continue to monitor hourly.
[2016-10-27] MEDS: Fluticasone-Salmererol 250-50 Inhaler INHALATION SCH (08:30)
[2016-10-27] MEDS ORDERED: Heparin 10,000 Unit/1,000 mL NS Premix IV ONE (09:19)
[2016-10-27] MEDS ORDERED: Heparin 1,000 Unit/mL 10 mL Inj ONE (09:19)
[2016-10-27] MEDS ORDERED: Heparin 1,000 Units/500 mL NS Premix IV ONE (09:19)
[2016-10-27] MEDS: Famotidine Inj 20 MG in IV Premix 1 EACH IV SCH (09:24)
[2016-10-27] MEDS: Pantoprazole 40 mg ER24 Tablet PO SCH (09:25)
--- NOTE | 2016-10-27 09:40 | NUR ---
Off Unit Patient off floor to label printer via bed.
[2016-10-27] MEDS ORDERED: fentaNYL-PF 50 mCg/mL 2 mL Inj ONE ×2 (09:51→10:07)
[2016-10-27] MEDS ORDERED: Nitroglycerin 50,000 mcg/250 mL D5W Premix IV ONE (09:51)
[2016-10-27] MEDS ORDERED: Hydrocortisone 50 mg/mL 2 mL Inj ONE (10:02)
[2016-10-27] MEDS ORDERED: Sodium Chloride LOK Flush 10 mL Syringe IVFLUSH PRN (11:40)
[2016-10-27] MEDS ORDERED: Atropine 1 mg/10 mL (Code) Syringe IVPUSH PRN (11:40)
[2016-10-27] MEDS ORDERED: 0.9% Sodium Chloride 250 ML BOLUS IV PRN (11:40)
[2016-10-27] MEDS ORDERED: Ondansetron 2 mg/mL 2 mL Inj IVPUSH PRN (11:40)
[2016-10-27] MEDS ORDERED: 0.9% Sodium Chloride 1,000 ML IV ONE (11:40)
--- NOTE | 2016-10-27 14:36 | PCM.DIMED ---
Discharge Instructions Date of Service Oct 27, 2016 Dates of Hospitalization Oct 24, 2016 at 15:24 Discharge Diagnosis Discharge Diagnosis # Acute chest pain of unclear etiology, present on admission. - Ruled out acute myocardial infarction # Hyperlipidemia. Present on admission. # Chronic Pancreatitis. Stable # Self reported history of diastolic dysfunction. Stable. # GERD # Crohn's disease. Stable # Chronic asthma. Stable # Acute anxiety. Reports currently under control Diet Discharge Diet: Low fat, Low Sodium, Heart Healthy Activity Discharge Activity: Limited until seen by PCP Call your provider Call your provider for: Fever or Chills, Shortness of breath, Bleeding, Chest pain, Vomitting, Excessive diarrhea, Weakness (unilateral) Patient Instructions Patient Instructions You were hospitalized due to chest pain. stress test and EKG negative for myocardial ischemia but echo with apical hypokinesis . Underwent cardiac cath which is a definitive diagnostic procedure. negative for coronary artery diseases. Your chest pain may be due to acid reflux or anxiety . Please continue home medications. You have high cholesterol with LDL of 176 . please take lipitor as prescribed . follow up with PCP in 1-2 weeks. Follow-up Provider: [facility] Follow-up with PCP in: 1 week ([facility] check in at 10Am for 1010AM appointment with 11/02/16) Bam Sylvester MD Oct 27, 2016 14:36
[2016-10-27] MEDS ORDERED: ATOR20TA65 PO (14:37)
[2016-10-27] MEDS ORDERED: ATOR20TA PO ×3 (14:40→14:49)
--- NOTE | 2016-10-27 16:11 | NUR ---
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 Perclose closure device right groin site. Dressing CDI, no evidence bleeding, hematoma or pain at site. Distal pulses intact. Checks complete, pt ambulates to BR, SBA, no difficulty. Fit for discharge per showroom manager and hospitalist physicians. Discharged to home with friend providing transportation. Discharge paperwork and prescriptions given. Questions answered, understanding verbalized by patient. Peripheral IV's discontinued intact. Pt escorted to lobby by [employer] via wheelchair. Belongings accounted for to pt satisfaction including cell phone and jewelery.
--- NOTE | 2016-10-27 17:01 | CS94 ---
[address] [address] DIAGNOSTIC CARDIAC CATHETERIZATION PATIENT: DUNCAN MACHADO : 1954 MR#: [id number] ADMIT: 10/24/2016 JOB ID: [id number] PROCEDURE NOTE--CARDIAC CATHETERIZATION LABORATORY: DATE OF PROCEDURE: Thursday, October 27, 2016. FOIL SPINNER: Mayank Marin MD. PROCEDURES: 1. Coronary Angiogram--Urgent. 2. Left heart catheterization (LHC): Pressure measurement; and left ventriculogram (LVG). CLINICAL DETAILS: This 61-year-old woman presents to the Cardiac Catheterization Laboratory after she was admitted to the hospital two days ago when she developed chest pain with exertion relieved by rest over a period of several days. There was concern for coronary disease. CAD RISK FACTORS include primarily severe untreated hyperlipidemia with LDL 179. However, despite even some ongoing chest discomfort in the hospital, serial troponins were negative. ECG was not outside normal limits; and a stress test revealed no ischemia. Coronary angiogram is undertaken for definitive diagnosis, and to guide treatment decisions, including prior even to initiation of anti-anginal therapy unless there is a definite diagnosis. Echocardiogram shows intact left ventricular function with inferoapical wall motion defect that by her report may have been noted previously in the early 1999s when she had cardiac evaluation including a catheterization said to show no severe coronary lesions at that time. PROCEDURAL DETAILS: I evaluated her prior to the procedure and discussed the recommendation to proceed to coronary angiogram for definitive diagnosis and to guide treatment decisions including medical therapy; or PCI; or CAB. We discussed the procedure including possible risks and complications. After discussion and questions, she signed informed consent to proceed. She was brought to the catheterization laboratory NPO where she was prepped sterilely, and draped. Because of a convincing history of remote anaphylactic dye reaction, she had been treated for over 12 hours with steroids, IV famotidine, and Benadryl. CORONARY ANGIOGRAM: Arterial access is obtained without difficulty in the right common femoral artery using fluoroscopic localization over the femoral head; with lidocaine local anesthesia; and modified Seldinger technique to insert a 10 cm, 6-Welsh side-arm sheath. Catheters are advanced and exchanged over a long 0.035 inch J-tipped guidewire. For coronary angiography, a 6-Welsh, JL-4 diagnostic catheter was used for the left coronary artery; and a 6-Welsh JR-4 catheter was used for the right coronary artery. LHC: The catheter crossed the aortic valve into the left ventricle; and pressures were measured including pullback. At the end of the procedure, a 6-Welsh pigtail catheter was advanced across the aortic valve into the left ventricle; and left ventriculogram was done in the 30-degree PRATHER projection using 40 cc. contrast injected at 12 cc/second. Procedure without difficulty. Patient tolerated procedure well. No complication. No evidence of dye reaction noted. A side-arm sheath angiogram shows adequate access for a closure device; and arterial hemostasis is obtained without difficulty using a 6-Welsh Perclose suture. The patient is transferred in stable condition from the Catheterization Laboratory to the PCU Telemetry unit for ongoing care including by the primary Hospitalist team. I discussed the procedure, findings and recommendations with the patient (no family present); and with the Hospitalist team (Dr. Soto). FINDINGS: 1. LMCA: Intact. Short. 2. LAD: Intact without angiographic lesions. The left anterior descending coronary artery is a moderate size transapical vessel with a small diagonal at the mid vessel. 3. LCX: Left dominant. Intact. The left circumflex coronary artery is a large dominant vessel with a large OM-1 ; then a medium-size LPL branch, and finally a small LPDA. There are no angiographic obstructive lesions. 4. Ramus: Intact. There is a medium size ramus branch which does have 40% tubular ostial plaquing. 5. RCA: Nondominant. Intact. The right coronary artery is a small nondominant vessel without lesions. 6. LHC: LVED 23 mmHg; and no systolic gradient across the aortic valve on pullback. 7. LVG: Normal left ventricular size and global systolic function with no regional wall motion abnormalities. No mitral regurgitation. Estimated ejection fraction 60% to 65%. Inferior wall motion defect suspected from echo is not apparent. CONCLUSIONS: 1. Coronary Angiogram--No coronary lesions identified. 2. LVG--Normal left ventricular systolic function without wall motion abnormalities. 3. Elevated LVED. RECOMMENDATIONS: 1. No coronary lesions are identified; and no indication for revascularization; and her chest discomfort does not appear to be due to overt fixed coronary disease. 2. Plan for ongoing evaluation and management of her chest pain syndrome. 3. OMT--Guideline-directed optimal medical therapy for underlying CAD risk factors, including using the 2013 [employer] CV risk calculator. 4. Consider high-intensity statin for her very high LDL. MTDD
--- NOTE | 2016-10-28 06:50 | PCM.DC.MED ---
Discharge Summary Date of Service Oct 28, 2016 Dates of Hospitalization Date of Hospital Admission Oct 24, 2016 at 15:24 Date of Discharge: Oct 27, 2016 Providers: Admitting Physician: William Roa Primary Care Physician: Moreno Attending Physician: Bam Sylvester MD Diagnosis at Time of Discharge Diagnosis at Time of Discharge # Acute chest pain of unclear etiology, present on admission. - Ruled out acute myocardial infarction # Hyperlipidemia. Present on admission. # Chronic Pancreatitis. Stable # Self reported history of diastolic dysfunction. Stable. # GERD # Crohn's disease. Stable # Chronic asthma. Stable # Acute anxiety. Reports currently under control Consultations cardiology Dr Marin Procedures XRay, CTs & MRIs Date of Service: 10/24/16 1333 PROCEDURE: X-RAY CHEST ONE VIEW, PORTABLE ([id number]) IMPRESSION: Normal. Source of pain is not seen. Dictated by: Varghese Lopez M.D. on 10/24/2016 at 14:06 Approved by: Varghese Lopez M.D. on 10/24/2016 at 14:06 ECG 12 Lead SR at rate of about [address] elevation/depression. Invasive Procedures ANGIOGRAM FINDINGS: 1. LMCA: Intact. Short. 2. LAD: Intact without angiographic lesions. The left anterior descending coronary artery is a moderate size transapical vessel including a small diagonal at the mid vessel. 3. LCX: Left dominant. Intact. The left circumflex coronary artery is a large dominant vessel with a large OM-1 ; then a medium-size LPL branch, and finally a small LPDA. There are no angiographic obstructive lesions. 4. Ramus: Intact. There is a medium size ramus branch which does have 40% tubular ostial plaquing. 5. RCA: Nondominant. Intact. The right coronary artery is a small nondominant vessel without lesions. 6. LHC: LVED 23 mmHg; and no systolic gradient across the aortic valve on pullback. 7. LVG: Normal left ventricular size and global systolic function with no regional wall motion abnormalities. No mitral regurgitation. Estimated ejection fraction 60% to 65%. Inferior wall motion defects suspected from echo is not apparent. CONCLUSIONS:: 1. Coronary angiogram--no coronary lesions identified. 2. LVG--normal left ventricular systolic function without wall motion abnormalities. 3. Elevated LVED. RECOMMENDATIONS: 1. No coronary lesions are identified; and no indication for revascularization; and her chest discomfort does not appear to be due to overt coronary disease. 2. Plan for ongoing evaluation and management of her chest pain syndrome. 3. OMT--guideline-directed optimal medical therapy for underlying CAD risk factors according to the 2013 [employer] CV risk calculator. 4. Consider high-intensity statin for her very high LDL. Mayank Marin MD 10/27/16 1530 Brief History per HPI 61 year old female with self reported history of diastolic heart failure, GERD, chronic pancreatitis pancreatitis, and Crohn's disease presents with report of intermittent left-sided, non-radiating, and sharp chest pain with exertion that began about 2 days ago. She first started noticing some chest discomfort few days ago as she was going the stairs in her apartment. 2 days ago as she was walking to the [facility] she noticed significant sharp left sided chest pain (about 6 out of 10 in intensity) that was associated with some nausea but no other associated symptoms. The pain lasted about 5 minutes and was relieved with rest. She had recurrence of this pain throughout the day every time she would ambulate or exert herself. Yesterday she rested at home all day and did not have any chest discomfort. Today as she was coming back from [facility] she had another episode. She went to the local fire station and was subsequently brought to the ED via EMS. In the ED her chest pain resolved after one SL NTG. She denies any associated shortness of breath, diaphoresis or vomiting with these episodes of chest pain but did have some associated lightheadedness and nausea. She denies any similar episodes prior to recent days. She last had a stress test and cardiac cath about 5-6 years when she was supposedly diagnosed with diastolic heart failure and she notes that at that time no significant coronary artery disease was identified. She reports chronic bilateral lower extremity edema that has not been any worse than usual. Hospital Course 61 year old female with self reported history of diastolic heart failure, GERD, chronic pancreatitis pancreatitis, and Crohn's disease presents with report of intermittent left-sided, non-radiating, and sharp chest pain with exertion # Acute chest pain , present on admission. - Ruled out acute myocardial infarction with negative Trop x 3.d-dimer negative - Exercise stress test reported as negative on 10/25/16 - Echocardiogram showing EF 55-60% and a small area of hypokinesis along the apical anterior and apical lateral wall. - Patient seen with Dr. Marin,he discussed options in detail including empiric medical management versus diagnostic cardiac cath . Patient opted for cardiac catheterization. Underwent cardiac catheterization which was negative for coronary disease -Patient has history of anaphylaxis to x-ray dye many years ago.received pretreatment with Benadryl , ranitidine and Solu-Medrol - Continue with home meds ,coreg ,lisinopril and ASA - Continue with Lipitor started during this hospital for hyperlipidemia with LDL 176. # Hyperlipidemia. Present on admission. - Started on Lipitor as noted above # Chronic Pancreatitis. Stable - Followup # Self reported history of diastolic dysfunction. Stable. - Continue with home dose Lisinopril - Echo as noted above # GERD - Continue with home PPI # Crohn's disease. Stable - Not on any home meds # Chronic asthma. Stable - Continue with home dose inhalers # Acute anxiety. Reports currently under control - Due to some social issues including her son possibly going to [facility]dc. Dispo: Discharged home Condition on discharge stable Exam Vital Signs (Last) Date Time Temp Pulse Resp B/P Pulse Ox O2 Delivery O2 Flow Rate FiO2 10/27/16 14:00 72 17 113/96 10/27/16 11:21 36.9 10/27/16 10:22 94 Room Air Exam General: Alert, Cooperative, No Acute Distress Head: Normal Eyes: Scleral Anicteric Nose: Mucous Membr Moist/[place] Mouth: Mucous Membr Moist/[place] Neck: Supple Chest & Lungs: Chest Wall Normal, Clear to auscultation bilat Cardiovascular: Regular Rate/Rhythm Abdomen: Non-tender, Non-distended, Normoactive bowel tones, Soft Extremities: No cyanosis/clubbing/edema bilat Neurological: Grossly Neurologically Intact, Cranial Nerves 2-12 Intact, Normal Speech Psych: Calm, appropriate Test 10/24/16 13:44 10/25/16 05:20 10/26/16 10:41 Neutrophils (%) (Auto) 53.1% (40-74) Lymphocytes (%) (Auto) 36.1% (14-46) Monocytes (%) (Auto) 8.1% (4-12) Eosinophils (%) (Auto) 2.2% (0-5) Basophils (%) (Auto) 0.3% (0-3) Total Bilirubin 0.3mg/dL (0.0-1.2) Aspartate Amino Transf (AST/SGOT) 17U/L (0-50) Alanine Aminotransferase (ALT/SGPT) 16U/L (0-32) Alkaline Phosphatase 71U/L (25-165) Total Protein 7.3g/dL (6.4-8.4) Albumin 4.4g/dL (3.4-5.0) White Blood Count 6.2th/mm3 (3.8-10.1) Red Blood Count 4.31mil/mm3 (3.90-5.20) Hemoglobin 12.8g/dL (12.0-15.6) Hematocrit 37.8% (35.0-46.0) Mean Corpuscular Volume 87.7fL (81-100) Mean Corpuscular Hemoglobin 29.7pg (27.0-35.0) Mean Corpuscular Hemoglobin Concent 33.9% (32.0-37.0) Red Cell Distribution Width 12.7% (12.3-15.4) Platelet Count 202bil/L (150-400) Prothrombin Time 10.5sec (8.1-12.5) Prothromb Time International Ratio 0.98ratio Activated Partial Thromboplast Time 35.9sec (22.8-33.0) Sodium Level 143mEq/L (134-144) Potassium Level 3.9mEq/L (3.5-5.2) Chloride Level 108mEq/L (97-108) Carbon Dioxide Level 22mmol/L (18-29) Blood Urea Nitrogen 13mg/dL (8-27) Creatinine 0.84mg/dL (0.57-1.00) Estimat Glomerular Filtration Rate 99mL/min (>59) Glucose Level 106mg/dL (60-99) Calcium Level 8.9mg/dL (8.5-10.1) Magnesium Level 1.9mg/dL (1.6-2.6) Troponin T < 0.010ug/L (0.0-0.011) Triglycerides Level 232mg/dL (0-149) Cholesterol Level 257mg/dL (100-199) LDL Cholesterol, Calculated 176.600mg/dL (0-99) VLDL Cholesterol 46.400mg/dL HDL Cholesterol 34mg/dL (>39) Cholesterol/HDL Ratio 7.56 (0.0-4.4) D-Dimer < 0.50mg/L FEU (<0.50) Discharge Medications Discharge Medications Aspirin (Aspirin) 81 Mg Tablet 81 MG PO DAILY (Reported) Atorvastatin (Lipitor) 20 Mg Tablet 20 MG PO DAILY Prescribed by: BAM SYLVESTER MD Carvedilol (Carvedilol) 25 Mg Tablet 25 MG PO BID (Reported) Estrogens Conjugated (Premarin) 1 Gm Vagcream 1 GM VAGINAL WEEKLY (Reported) Fluticasone/Salmeterol (Advair 250-50 Diskus) 60 Puff/Inh Disk 1 PUFF IH BID ( Reported) Lisinopril (Lisinopril) 5 Mg Tablet 2.5 MG PO HS (Reported) Omeprazole (Omeprazole) 20 Mg Capsule.dr 20 MG PO BID (Reported) As needed Albuterol Sulfate (Ventolin HFA Inhaler) 200 Puff/18 Gm Inhaler 2 PUFFS INHALATION QID PRN PRN For Shortness of Breath (Reported) Ondansetron ODT (Ondansetron ODT) 8 Mg Tab.rapdis 8 MG PO TID PRN PRN For Nausea (Reported) Triamcinolone Acet (Triamcinolone Acetonide Cream) 1 Applic/0.25 Gm Cr 1 APPLIC TOPICAL DAILY PRN PRN dry hands (Reported) Followup Plan Disposition: home Discharge Diet: Low fat, Low Sodium, Heart Healthy Discharge Activity: Limited until seen by PCP Patient Instructions You were hospitalized due to chest pain. stress test and EKG negative for myocardial ischemia but echo with apical hypokinesis . Underwent cardiac cath which is a definitive diagnostic procedure. negative for coronary artery diseases. Your chest pain may be due to acid reflux or anxiety . Please continue home medications. You have high cholesterol with LDL of 176 . please take lipitor as prescribed . follow up with PCP in 1-2 weeks. Follow-up Provider: [facility] Follow-up with PCP in: 1 week ([facility] check in at 10Am for 1010AM appointment with 11/02/16) copies to: [facility] Bam Sylvester MD Oct 28, 2016 06:49
== END 2016-10-27 15:29 | disposition home or self-care (01) ==
LOC: EDBD 13:20 → SED 13:20 → OSC 15:24 → CCU 10-27 11:33
PROVIDERS: ADMIT Internal Medicine; ATTEND Internal Medicine
DX: R07.89 Other chest pain (principal); I50.32 Chronic diastolic (congestive) heart failure; I11.0 Hypertensive heart disease with heart failure; K21.9 Gastro-esophageal reflux disease without esophagitis; E78.5 Hyperlipidemia, unspecified; F41.9 Anxiety disorder, unspecified; K50.90 Crohn's disease, unspecified, without complications; K86.1 Other chronic pancreatitis; J45.909 Unspecified asthma, uncomplicated; Z79.82 Long term (current) use of aspirin; Z79.899 Other long term (current) drug therapy
CPT/HCPCS: 36415; 71010; 78452; 80048; 80053; 80061; 83735; 84484; 85025; 85027; 85378; 85610; 85730; 93005; 93017; 93458; 94664; 94799; 96372; 96374; 96375; 96376; 99152; 99153; 99285; A9502; C1760; C1769; C8929; G0378; J1200; J1644; J1720; J2250; J2270; J2405; J2930; J3010; J3490; J7030; Q9967